=== PATIENT | male | born 1950 | race Caucasian/White ===

== ENCOUNTER 2021-10-15 10:50 | Emergency (ER) | payer OTHER, MEDICAID ==
[~2021-10-15] VITALS: Ht 175.3 cm; Wt 74.8 kg
[2021-10-15 10:55] VITALS: BP_SYST 162
[2021-10-15] MEDS ORDERED: DIPH-TET-PERTUS Vaccine 0.5 ML VIAL (ADACEL) I.M. ONE (11:30)
[2021-10-15 12:31] VITALS: BP_SYST 157
== END 2021-10-15 13:05 | disposition home or self-care (01) ==
LOC: SED 10:50
DX: S16.1XXA Strain of muscle, fascia and tendon at neck level, initial encounter (principal); S80.02XA Contusion of left knee, initial encounter; S00.83XA Contusion of other part of head, initial encounter; E11.9 Type 2 diabetes mellitus without complications; I10 Essential (primary) hypertension; W06.XXXA Fall from bed, initial encounter; Y99.8 Other external cause status; Y93.89 Activity, other specified; Y92.89 Other specified places as the place of occurrence of the external cause
CPT/HCPCS: 70450-TC; 71045; 72125-TC; 73560-TC; 76376; 99285